=== PATIENT | female | born 1930 | race Caucasian/White ===

== ENCOUNTER 2016-09-07 12:26 | Inpatient (IN) | payer MEDICARE ==
[~2016-09-07] VITALS: Ht 149.9 cm; Wt 48.0 kg
[2016-09-07] MEDS ORDERED: SODIUM CHLORIDE FLUSH 10ML SYR IVF ONE (13:00)
[2016-09-07 13:31] LABS: ASPARTATE AMINO TRANSFERASE 16 U/L (15-37); BLOOD UREA NITROGEN 37 mg/dL (7-18)
[2016-09-07 13:37] LABS: IS PT STATUS REG ER OR PRE ER? YES
[2016-09-07] MEDS ORDERED: C-E2/E3 TD (13:58)
[2016-09-07] MEDS ORDERED: LATA2.5D3 EACHEYE (13:58)
[2016-09-07] MEDS ORDERED: MELO-190 PO (13:58)
[2016-09-07] MEDS ORDERED: BROM0.8T PO (13:58)
[2016-09-07] MEDS ORDERED: LEVO50TA PO (13:58)
[2016-09-07] MEDS ORDERED: PROGESTERONE TD (13:58)
[2016-09-07] MEDS ORDERED: NAPROXEN 500 MG TABLET PO ONE (15:00)
[2016-09-07] MEDS ORDERED: SODIUM CHLORIDE 0.9%, 500ML IVBOLUS ONE (15:00)
[2016-09-07 18:11] VITALS: BP 161/71
[2016-09-07 18:19] VITALS: BP 159/64
[2016-09-07] MEDS ORDERED: ALUMINUM/MAG/SIMETHICONE 30 ML UDC PO PRN (19:30)
[2016-09-07] MEDS ORDERED: ONDANSETRON 2MG/ML, 2ML IVPush PRN (19:30)
[2016-09-07] MEDS ORDERED: NITROGLYCERIN 0.4 MG BOTTLE (25 TABS) SL PRN (19:30)
[2016-09-07] MEDS ORDERED: ARTIFICIAL TEARS OPHTH SOLN 15ML EACHEYE PRN (19:30)
[2016-09-07] MEDS ORDERED: SODIUM CHLORIDE 0.9% 1,000 ML IV SCH (19:30)
[2016-09-07 19:58] LABS: IS PT STATUS REG ER OR PRE ER? NO
[2016-09-07] MEDS ORDERED: CALCITONIN NASAL 200 UNITS/0.09ML, 3.7ML NAS SCH (21:00)
[2016-09-07] MEDS ORDERED: LATANOPROST OPHTH 0.005%, 2.5ML OP SCH (21:00)
[2016-09-07] MEDS: HEPARIN 5,000 UNITS/ML, 1ML SQ SCH (21:00)
[2016-09-08] VITALS (7 sets, daily range): BP systolic 113–176; BP diastolic 57–87
[2016-09-08 01:52] LABS: IS PT STATUS REG ER OR PRE ER? NO
[2016-09-08] MEDS: ACETAMINOPHEN 325 MG TABLET PO PRN ×2 (04:32→04:36)
[2016-09-08] MEDS: HEPARIN 5,000 UNITS/ML, 1ML SQ SCH ×2 (04:32→14:38)
[2016-09-08 05:51] LABS: BLOOD UREA NITROGEN 29 mg/dL (7-18)
[2016-09-08] MEDS: ASPIRIN 81 MG TABLET EC PO SCH ×2 (06:00→06:21)
[2016-09-08] MEDS ORDERED: LEVOTHYROXINE 50 MCG TABLET PO SCH (06:00)
[2016-09-08] MEDS ORDERED: MELOXICAM 15 MG TABLET PO SCH (09:00)
[2016-09-08] MEDS ORDERED: REGADENOSON 0.4 MG/5 ML SYRINGE ONE (12:06)
[2016-09-08] MEDS ORDERED: CABE0.5T PO ×2 (17:41)
[2016-09-08] MEDS ORDERED: CALC3.7S5 NAS (17:41)
[2016-09-08] MEDS ORDERED: ASPI-621 PO (17:41)
[2016-09-10] MEDS ORDERED: CABERGOLINE 0.5 MG TABLET PO SCH (09:00)
[2016-09-13] MEDS ORDERED: CABERGOLINE 0.5 MG TABLET PO SCH (21:00)
== END 2016-09-08 20:22 | disposition home health service (06) | DRG 312 ==
LOC: ED 13:47 → EDIP 15:03 → 5SO 17:36
PROVIDERS: ADMIT Internal Medicine; ATTEND Internal Medicine
PROC: 0T9B70Z Drainage of Bladder with Drainage Device, Via Natural or Artificial Opening (ICD-10-PCS; principal; 2016-09-07)
DX: R55 Syncope and collapse (principal); E22.1 Hyperprolactinemia; I67.3 Progressive vascular leukoencephalopathy; N28.9 Disorder of kidney and ureter, unspecified; R07.89 Other chest pain; E03.9 Hypothyroidism, unspecified; H40.9 Unspecified glaucoma; M19.90 Unspecified osteoarthritis, unspecified site; Z79.890 Hormone replacement therapy; M81.0 Age-related osteoporosis without current pathological fracture; H35.30 Unspecified macular degeneration; I51.7 Cardiomegaly; J45.909 Unspecified asthma, uncomplicated; Z79.82 Long term (current) use of aspirin; Z82.49 Family history of ischemic heart disease and other diseases of the circulatory system; Z82.5 Family history of asthma and other chronic lower respiratory diseases; Z88.0 Allergy status to penicillin; Z90.10 Acquired absence of unspecified breast and nipple; Z88.1 Allergy status to other antibiotic agents; Z90.89 Acquired absence of other organs; Z90.49 Acquired absence of other specified parts of digestive tract; M47.816 Spondylosis without myelopathy or radiculopathy, lumbar region
CPT/HCPCS: 36415; 70450; 71010; 78452; 80048; 80053; 80061; 81003; 82306; 83036; 84443; 84484; 85025; 85610; 85730; 93005; 93017; 93306; 93880; 96360; 96361; J1644; J2785; A9502; C9898; J7040

== ENCOUNTER 2018-01-26 23:40 | Observation (INO) | payer MEDICARE ==
[~2018-01-26] VITALS: Ht 149.9 cm; Wt 49.2 kg
[~2018-01-26 23:40] MED LIST: ASPI-621 PO; BROM0.8T PO; C-E2/E3 TD; CABE0.5T PO; CALC3.7S5 NAS; LATA2.5D3 EACHEYE; LEVO50TA PO; MELO7.5T31 PO; PROGESTERONE TD
[2018-01-27] MEDS ORDERED: SODIUM CHLORIDE 0.9% 1,000ML IVBOLUS ONE
[2018-01-27] MEDS ORDERED: methylPREDNISolone SOD SUCC 125 MG/2 ML IVP ONE
[2018-01-27] MEDS ORDERED: SODIUM CHLORIDE FLUSH 10ML SYR IVF ONE
[2018-01-27] MEDS ORDERED: ALBUTEROL/IPRATROPIUM 2.5MG/0.5MG, 3 ML ONE (00:23)
[2018-01-27 00:36] LABS: BASOPHILS # (AUTO) 0.05 x10^3/uL (0-0.1); BASOPHILS % (AUTO) 0 % (0-1); EOSINOPHILS # (AUTO) 0.18 x10^3/uL (0-0.4); EOSINOPHILS % (AUTO) 1 % (1-7); LYMPHOCYTES # (AUTO) 0.98 x10^3/uL (1-3.4); LYMPHOCYTES % (AUTO) 8 % (22-44); MD NO; MEAN CORPUSCULAR HEMOGLOBIN 32.6 pg (27.0-34.8); MEAN CORPUSCULAR HGB CONC 34.1 g/dL (32.4-35.8); MEAN CORPUSCULAR VOLUME 95.8 fL (80-100); MEAN PLATELET VOLUME 7.9 fL (7.4-10.4); MONOCYTES # (AUTO) 0.54 x10^3/uL (0.2-0.8); MONOCYTES % (AUTO) 4 % (2-9); NEUTROPHILS # (AUTO) 11.05 x10^3/uL (1.8-6.8); NEUTROPHILS % (AUTO) 86 % (42-75); PLATELET COUNT 290 x10^3/uL (130-400); RED CELL DISTRIBUTION WIDTH 13.3 % (9.6-15.2)
[2018-01-27] MEDS ORDERED: methylPREDNISolone SOD SUCC 125 MG/2 ML ONE (00:36)
[2018-01-27 00:49] LABS: ALANINE AMINOTRANSFERASE 22 U/L (12-78); ALBUMIN 3.8 g/dL (3.4-5.0); ANION GAP 7 mmol/L (5-15); CALCIUM 9.7 mg/dL (8.5-10.1); CHLORIDE 103 mmol/L (98-107); CREATININE 1.22 mg/dL (0.55-1.02)
[2018-01-27 00:54] LABS: ALKALINE PHOSPHATASE 84 U/L (45-117); BILIRUBIN,TOTAL 0.5 mg/dL (0.2-1.0); TOTAL PROTEIN 7.8 g/dL (6.4-8.2); TROPONIN I < 0.015 ng/mL (0.000-0.045)
[2018-01-27] MEDS ORDERED: SODIUM CHLORIDE 0.9% 1,000 ML IV ONE (02:04)
[2018-01-27] MEDS ORDERED: CLINDAMYCIN 150 MG CAPSULE ONE (02:05)
[2018-01-27] MEDS ORDERED: MORPHINE SULFATE 4 MG/ML, 1ML IVPush PRN (02:30)
[2018-01-27] MEDS ORDERED: CLINDAMYCIN 150 MG CAPSULE PO ONE (02:30)
[2018-01-27] MEDS ORDERED: SODIUM CHLORIDE FLUSH 10ML SYR IVF PRN (02:30)
[2018-01-27] MEDS ORDERED: PROMETHAZINE 25 MG/ML, 1ML IM PRN (02:30)
[2018-01-27] MEDS ORDERED: OMEG1CAP23 PO (02:43)
[2018-01-27] MEDS ORDERED: ANTI1CAP PO (02:43)
[2018-01-27] MEDS ORDERED: ALBU8.5H8 INH (02:43)
[2018-01-27] MEDS ORDERED: UBID100C24 PO (02:43)
[2018-01-27] MEDS ORDERED: CALC3.7S5 NAS (02:43)
[2018-01-27] MEDS ORDERED: IPRA15SP NAS (02:43)
[2018-01-27] MEDS ORDERED: LEVO500C3 PO (02:43)
[2018-01-27] MEDS ORDERED: PARI1CAP3 PO (02:43)
[2018-01-27] MEDS ORDERED: HYPO40SP EACHEYE (02:43)
[2018-01-27] MEDS ORDERED: GLUC1CAP48 PO (02:43)
[2018-01-27] MEDS ORDERED: BROM0.8T PO (02:43)
[2018-01-27] MEDS ORDERED: AMIL5TAB2 PO (02:43)
[2018-01-27] MEDS ORDERED: CLIN150C14 PO (02:43)
[2018-01-27] MEDS ORDERED: BIOT800T PO (02:43)
[2018-01-27] MEDS ORDERED: MAGN300C PO (02:43)
[2018-01-27] MEDS ORDERED: FLUO5DRO3 PO (02:43)
[2018-01-27 03:11] VITALS: BP 130/71
[2018-01-27 03:18] VITALS: BP 130/71
[2018-01-27] MEDS ORDERED: FLUOROMETHOLONE PO SCH (04:00)
[2018-01-27] MEDS ORDERED: Ipratropium Bromide NAS PRN (04:00)
[2018-01-27] MEDS ORDERED: ALBUTEROL SULFATE 2.5 MG/3 ML NPPB PRN (04:00)
[2018-01-27] MEDS: ASPIRIN 81 MG TABLET EC PO SCH (04:50)
[2018-01-27] MEDS: LEVOTHYROXINE 50 MCG TABLET PO SCH (04:50)
[2018-01-27] MEDS: ALBUTEROL/IPRATROPIUM 2.5MG/0.5MG, 3 ML NPPB SCH ×4 (07:11→20:00)
[2018-01-27 07:30] VITALS: BP 114/58
[2018-01-27] MEDS ORDERED: AMILORIDE 5 MG TABLET PO SCH (09:00)
[2018-01-27] MEDS: BROMOCRIPTINE MESYLATE PO SCH (09:00)
[2018-01-27] MEDS ORDERED: PARICALCITOL 1 MCG CAPSULE PO SCH (09:00)
[2018-01-27] MEDS ORDERED: LEVOCARNITINE TARTRATE 500 MG PO SCH (09:00)
[2018-01-27] MEDS: CLINDAMYCIN 150 MG CAPSULE PO SCH (09:55)
[2018-01-27] MEDS: ENOXAPARIN 30 MG/0.3 ML SQ SCH (09:55)
[2018-01-27] MEDS: OMEGA-3/FISH OIL CAPSULE PO SCH (09:56)
[2018-01-27] MEDS: methylPREDNISolone SOD SUCC 125 MG/2 ML IVPush SCH ×2 (12:49→20:52)
[2018-01-27 13:45] VITALS: BP 148/74
[2018-01-27 18:28] VITALS: BP 119/61
[2018-01-27] MEDS: GUAIFENESIN/DM 200-20MG, 10ML UDC PO PRN (20:52)
[2018-01-27] MEDS ORDERED: LATANOPROST OPHTH 0.005%, 2.5ML EACHEYE SCH (21:00)
[2018-01-28] MEDS: GUAIFENESIN/DM 200-20MG, 10ML UDC PO PRN (03:31)
[2018-01-28 03:50] VITALS: BP 105/54
[2018-01-28] MEDS: ASPIRIN 81 MG TABLET EC PO SCH (05:52)
[2018-01-28] MEDS: methylPREDNISolone SOD SUCC 125 MG/2 ML IVPush SCH (05:52)
[2018-01-28] MEDS: LEVOTHYROXINE 50 MCG TABLET PO SCH (05:52)
[2018-01-28] MEDS: ALBUTEROL/IPRATROPIUM 2.5MG/0.5MG, 3 ML NPPB SCH ×2 (06:45→10:04)
[2018-01-28 07:41] VITALS: BP 114/63
[2018-01-28] MEDS: OMEGA-3/FISH OIL CAPSULE PO SCH (08:30)
[2018-01-28] MEDS: BROMOCRIPTINE MESYLATE PO SCH (08:30)
[2018-01-28] MEDS: CLINDAMYCIN 150 MG CAPSULE PO SCH (08:31)
[2018-01-28] MEDS: ENOXAPARIN 30 MG/0.3 ML SQ SCH (08:31)
[2018-01-28] MEDS ORDERED: PRED10TA PO (12:05)
[2018-01-28] MEDS ORDERED: CLIN150C14 PO (12:05)
[2018-01-28] MEDS ORDERED: CLINDAMYCIN 150 MG CAPSULE PO SCH (16:00)
== END 2018-01-28 13:13 | disposition home or self-care (01) ==
LOC: ED 01-27 02:12 → EDIP 01-27 02:13 → INTOOBSV 01-27 02:13 → 5SO 01-27 03:07 → 3NW 01-27 18:18 → DCLOUNGE 01-28 13:09
PROVIDERS: ADMIT Internal Medicine; ATTEND Internal Medicine
DX: J20.9 Acute bronchitis, unspecified (principal); R07.9 Chest pain, unspecified; H35.30 Unspecified macular degeneration; J45.909 Unspecified asthma, uncomplicated; M50.30 Other cervical disc degeneration, unspecified cervical region; M81.0 Age-related osteoporosis without current pathological fracture; N18.9 Chronic kidney disease, unspecified; E07.9 Disorder of thyroid, unspecified; Z90.11 Acquired absence of right breast and nipple; Z86.61 Personal history of infections of the central nervous system
CPT/HCPCS: 36415; 71045; 80053; 83880; 84484; 85025; 87040; 93005; 94640; 96372; 96374; 96376; 99285; G0378; J1650; J2930; J7030; J7613; J7620

== ENCOUNTER 2018-05-22 10:22 | Emergency (ER) | payer MEDICARE ==
[~2018-05-22] VITALS: Ht 149.9 cm; Wt 47.0 kg
[~2018-05-22 10:22] MED LIST changes: +ALBU8.5H8 INH; +AMIL5TAB2 PO; +ANTI1CAP PO; -ASPI-621 PO; +ASPI81TA45 PO; +BIOT800T PO; +CLIN150C14 PO; +FLUO5DRO3 PO; +GLUC1CAP48 PO; +HYPO40SP EACHEYE; +IPRA15SP NAS; +LEVO500C3 PO; +MAGN300C PO; +OMEG1CAP23 PO; +PARI1CAP3 PO; +PRED10TA PO; +UBID100C24 PO
--- NOTE | 2018-05-22 10:40 | NUR ---
pt bib wyatt for a near syncopal episode. pt stated she was in the bathroom and felt "unstable" pt lowered herself to the floor and then called 911. While in route, jemimasa stated pt felt like she was going to pass out and jemimasa stated that her blood pressure went down to 80/60 while on the gurney. pt a&ox4. pt placed in room and placed on bp, cardiac and cont. pulse oximeter. assessment completed. call light in reach and two side rails up.
--- NOTE | 2018-05-22 10:49 | NUR ---
EKG DONE AND PRESENTED TO
[2018-05-22] MEDS ORDERED: SODIUM CHLORIDE FLUSH 10ML SYR IVF ONE (11:00)
[2018-05-22 11:02] LABS: BASOPHILS # (AUTO) 0.07 x10^3/uL (0-0.1); BASOPHILS % (AUTO) 1 % (0-1); EOSINOPHILS # (AUTO) 0.32 x10^3/uL (0-0.4); EOSINOPHILS % (AUTO) 5 % (1-7); LYMPHOCYTES # (AUTO) 1.45 x10^3/uL (1-3.4); LYMPHOCYTES % (AUTO) 24 % (22-44); MD NO; MEAN CORPUSCULAR HEMOGLOBIN 33.6 pg (27.0-34.8); MEAN CORPUSCULAR HGB CONC 34.7 g/dL (32.4-35.8); MEAN CORPUSCULAR VOLUME 96.8 fL (80-100); MEAN PLATELET VOLUME 7.7 fL (7.4-10.4); MONOCYTES # (AUTO) 0.44 x10^3/uL (0.2-0.8); MONOCYTES % (AUTO) 7 % (2-9); NEUTROPHILS # (AUTO) 3.69 x10^3/uL (1.8-6.8); NEUTROPHILS % (AUTO) 62 % (42-75); PLATELET COUNT 270 x10^3/uL (130-400); RED BLOOD COUNT 4.14 x10^6/uL (3.82-5.3); RED CELL DISTRIBUTION WIDTH 13.4 % (9.6-15.2)
--- NOTE | 2018-05-22 11:02 | NUR ---
PT TAKEN TO RADIOLOGY
[2018-05-22 11:06] LABS: ALANINE AMINOTRANSFERASE 24 U/L (12-78); ALBUMIN 3.4 g/dL (3.4-5.0); ANION GAP 8 mmol/L (5-15); CALCIUM 8.8 mg/dL (8.5-10.1); CHLORIDE 105 mmol/L (98-107); CREATININE 1.14 mg/dL (0.55-1.02)
[2018-05-22 11:09] LABS: CULTURE INDICATED? NO; MICROSCOPIC NOT IND
[2018-05-22 11:11] LABS: ALKALINE PHOSPHATASE 84 U/L (45-117); BILIRUBIN,TOTAL 0.5 mg/dL (0.2-1.0); TOTAL PROTEIN 6.7 g/dL (6.4-8.2); TROPONIN I < 0.015 ng/mL (0.000-0.045)
[2018-05-22 11:17] LABS: THYROID STIMULATING HORMONE 0.459 mIU/L (0.358-3.740)
[2018-05-22 12:14] VITALS: BP 135/45
--- NOTE | 2018-05-22 12:14 | NUR ---
TASK RN: PT RESTING ON GURVIJAY. VSS. PT AIDED TO COMMODE AND BACK TO BED X 1 ASSIST.
== END 2018-05-22 13:29 | disposition home or self-care (01) ==
LOC: ED 11:19
DX: R55 Syncope and collapse (principal); R51 Headache; Z90.49 Acquired absence of other specified parts of digestive tract
CPT/HCPCS: 36415; 70450; 71045; 80053; 81003; 83735; 84443; 84484; 85025; 93005; 99284